=== PATIENT | male | born 1965 | race African-American/Black ===

== ENCOUNTER 2018-07-25 00:14 | Observation (INO) ==
[2018-07-25] MEDS ORDERED: SODIUM CHLORIDE 0.9% 1,000 ML IV STA (00:44)
[2018-07-25 01:15] LABS: Basophils % 0.3 % (0.0-0.8); Eosinophils # 0.1 10*3/uL (0.0-0.87); Eosinophils % 1.4 % (0.00-10.9); Hematocrit 43.9 VOL% (42.0-52.0); Hemoglobin 14.4 GM/DL (14.0-18.0); Immature Granulocytes % 0.4 %; Immature Granulocytes Absolute 0.03 #; Lymphocytes # 1.5 10*3/uL (1.4-4.0); Lymphocytes % 21.5 % (21.2-54.2); Mean Corpuscular HGB Conc 32.8 GM/DL (32-36); Mean Corpuscular Hemoglobin 26 PG (27-34); Mean Corpuscular Volume 79.4 FL (87-102); Mean Platelet Volume 10.3 FL (9.6-12.0); Monocytes # 0.6 10*3/uL (0.11-0.8); Monocytes % 8.8 % (1.7-12.7); Neutrophils # 4.8 10*3/uL (1.4-7.4); Neutrophils % 67.6 % (38.7-73.9); Platelet Count 297 T/CUMM (130-400); Red Blood Count 5.53 MC/CUMM (3.8-5.5); Red Cell Distribution Width 13.6 % (9.3-17.3); White Blood Count 7.1 T/CUMM (4-12)
[2018-07-25 01:21] LABS: Alanine Aminotransferase 21 U/L (16-61); Albumin 3.4 G/DL (3.4-5.0); Alkaline Phosphatase 52 U/L (45-117); Aspartate Amino Transferase 14 U/L (0-37); Bilirubin,Total < 0.39 MG/DL (0.2-1.0); Blood Urea Nitrogen 16 MG/DL (7-18); Calcium 9.1 MG/DL (8.5-10.1); Glucose 98 MG/DL (74-106); Osmolality,Calculated 277.5 MOS/KG (273-304); Potassium 4.3 MMOL/L (3.5-5.1); Sodium 139 MMOL/L (136-145); Total Protein 9.3 G/DL (6.4-8.3)
[2018-07-25 02:50] LABS: Apearance,Urine CLEAR (Clear); Bilirubin,Urine Negative (Negative); Blood, Urine Moderate mg/dL (Negative); Glucose,Urine (UA) Negative (Negative); Ketones,Urine Negative (Negative); Nitrite,Urine Negative (Negative); Protein,Urine Negative; RBC,Urine 1 /HPF (0-4); Squamous Epithelial Cell,Urine Occasional /HPF (0-10); Urine Color Straw (Yellow); Urine Specific Gravity 1.044 (1.001-1.035); Urine Urobilinogen < 2.0 EU/DL (0.2-1.0); WBC,Urine <1 /HPF (0-6)
[2018-07-25] MEDS ORDERED: NICOTINE 21 MG/24 HR PATCH TRANSDERM PRN (04:33)
[2018-07-25] MEDS ORDERED: diphenhydrAMINE CAP 25 MG CAPSULE PO PRN (04:33)
[2018-07-25] MEDS ORDERED: ACETAMINOPHEN 325 MG TABLET PO PRN (04:33)
[2018-07-25] MEDS ORDERED: MORPHINE 4 MG/1 ML VIAL IV PRN (04:33)
[2018-07-25] MEDS ORDERED: ONDANSETRON 4 MG/2 ML VIAL IV PRN (04:33)
[2018-07-25] MEDS ORDERED: hydrALAZINE 25 MG TABLET PO PRN (05:30)
[2018-07-25] MEDS: PANTOPRAZOLE 40 MG TABLET PO SCH (09:52)
[2018-07-25] MEDS ORDERED: LORazepam 2 MG/1 ML VIAL IV ONE ×2 (09:52→11:57)
[2018-07-25] MEDS ORDERED: diphenhydrAMINE 50 MG/1 ML VIAL IV ONE ×2 (09:53→11:56)
[2018-07-25] MEDS ORDERED: MORPHINE 4 MG/1 ML VIAL IV ONE (14:18)
[2018-07-25 16:49] LABS: Carcinoembryonic Antigen 1.1 NG/ML (0.0-5.0)
[2018-07-25 16:52] LABS: Total Protein 8.8 G/DL (6.4-8.3)
[2018-07-25] MEDS: LACTULOSE 20 GM/30 ML UDCUP PO SCH ×2 (17:58→21:12)
[2018-07-25] MEDS: hydrALAZINE 25 MG TABLET PO SCH ×2 (17:58→21:12)
[2018-07-25] MEDS ORDERED: SENNA 8.6 MG TABLET PO SCH (21:00)
[2018-07-25] MEDS: DOCUSATE SODIUM 100 MG CAPSULE PO SCH (21:11)
[2018-07-25] MEDS: POLYETHYLENE GLYCOL POWDER 17 GM PACK PO SCH (21:12)
[2018-07-26] MEDS: LACTULOSE 20 GM/30 ML UDCUP PO SCH ×3 (02:43→11:47)
[2018-07-26 05:52] LABS: Immunoglobulin A (Chem) 190 MG/DL (70-400); Immunoglobulin G (Chem) 2580 MG/DL (700-1600); Immunoglobulin M (Chem) 21 MG/DL (40-230); Total Protein (Chem) 8.8 G/DL (6.4-8.3)
[2018-07-26 09:21] LABS: Immuno Free Light Chain Kappa 2.16 MG/DL (0.33-1.94); Immuno Free Light Chain Lambda 22.28 MG/DL (0.57-2.63)
[2018-07-26 09:53] LABS: Albumin (SPE) 4.3 G/DL (3.2-5.3); Albumin (SPE) Rel % 48.9 %; Alpha 1 (SPE) 0.2 G/DL (0.1-0.4); Alpha 1 (SPE) Rel % 2.2 %; Alpha 2 (SPE) 0.8 G/DL (0.4-1.0); Alpha 2 (SPE) Rel % 9.4 %; Beta (SPE) 0.9 G/DL (0.5-1.1); Gamma (SPE) 2.6 G/DL (0.7-1.7); Gamma (SPE) Rel % 29.5 %
[2018-07-26] MEDS: POLYETHYLENE GLYCOL POWDER 17 GM PACK PO SCH (11:46)
[2018-07-26] MEDS: DOCUSATE SODIUM 100 MG CAPSULE PO SCH (11:46)
[2018-07-26] MEDS: hydrALAZINE 25 MG TABLET PO SCH (11:46)
[2018-07-26] MEDS: PANTOPRAZOLE 40 MG TABLET PO SCH (11:47)
[2018-07-26 12:05] VITALS: BP 145/90
== END 2018-07-26 15:17 | disposition home or self-care (01) ==
LOC: N.ED 00:14 → N.EDINP 00:14 → SUPCPDRO 04:33 → N.4E 04:52
PROVIDERS: ADMIT Hospitalist; ATTEND Hospitalist

== ENCOUNTER 2018-09-01 11:13 | Inpatient (IN) ==
[2018-09-01] MEDS ORDERED: SODIUM CHLORIDE 0.9% 500 ML IV STA (11:35)
[2018-09-01] MEDS ORDERED: ONDANSETRON 4 MG/2 ML VIAL IV STA (11:35)
[2018-09-01 11:51] LABS: Basophils % 0.3 % (0.0-0.8); Eosinophils % 0.4 % (0.00-10.9); Hematocrit 41.6 VOL% (42.0-52.0); Hemoglobin 13.3 GM/DL (14.0-18.0); Immature Granulocytes % 0.3 %; Immature Granulocytes Absolute 0.02 #; Lymphocytes # 0.8 10*3/uL (1.4-4.0); Lymphocytes % 10.5 % (21.2-54.2); Mean Corpuscular Hemoglobin 26 PG (27-34); Mean Corpuscular Volume 79.7 FL (87-102); Mean Platelet Volume 9.6 FL (9.6-12.0); Monocytes # 0.5 10*3/uL (0.11-0.8); Monocytes % 6.9 % (1.7-12.7); Neutrophils # 5.8 10*3/uL (1.4-7.4); Neutrophils % 81.6 % (38.7-73.9); Platelet Count 299 T/CUMM (130-400); Red Blood Count 5.22 MC/CUMM (3.8-5.5); Red Cell Distribution Width 13.5 % (9.3-17.3); White Blood Count 7.1 T/CUMM (4-12)
[2018-09-01 12:08] LABS: Albumin 3.3 G/DL (3.4-5.0); Bilirubin,Total 0.4 MG/DL (0.2-1.0); Osmolality,Calculated 282.3 MOS/KG (273-304); Potassium 4.1 MMOL/L (3.5-5.1); Total Protein 9.9 G/DL (6.4-8.3)
[2018-09-01] MEDS ORDERED: PROMETHAZINE 25 MG/1 ML VIAL ONE (12:50)
[2018-09-01] MEDS ORDERED: PROMETHAZINE 25 MG/1 ML VIAL IM STA (12:52)
[2018-09-01] MEDS ORDERED: PROMETHAZINE 25 MG/1 ML VIAL IM PRN (13:19)
[2018-09-01] MEDS ORDERED: ONDANSETRON 4 MG/2 ML VIAL IV PRN ×2 (13:19→18:10)
[2018-09-01] MEDS ORDERED: ACETAMINOPHEN 325 MG TABLET PO PRN (13:19)
[2018-09-01] MEDS ORDERED: MORPHINE 4 MG/1 ML VIAL ONE (14:14)
[2018-09-01] MEDS: MORPHINE 4 MG/1 ML VIAL IV PRN ×2 (14:50→23:30)
[2018-09-01] MEDS ORDERED: hydrALAZINE 20 MG/1 ML VIAL IV PRN (15:01)
[2018-09-01] MEDS: PIPERACILLIN/TAZOBACTAM 3,375 MG in SODIUM CHLORIDE 0.9% 100 ML IV SCH ×2 (15:27→23:32)
[2018-09-01] MEDS: DEXTROSE 5% LACTATED RINGERS 1,000 ML IV SCH (15:40)
[2018-09-01] MEDS ORDERED: hydrALAZINE 20 MG/1 ML VIAL IV ONE (15:53)
[2018-09-01] MEDS ORDERED: SUGAMMADEX 200 MG/2 ML VIAL IV ONE (17:51)
[2018-09-01] MEDS ORDERED: HYDROmorphone 2 MG/1 ML VIAL IV PRN (18:10)
[2018-09-01] MEDS ORDERED: ONDANSETRON 4 MG/2 ML VIAL ONE (18:26)
[2018-09-01] MEDS ORDERED: MIDAZOLAM 2 MG/2 ML VIAL ONE (18:26)
[2018-09-01] MEDS ORDERED: ACETAMINOPHEN 1,000 MG/100 ML VIAL IV ONE (18:26)
[2018-09-01] MEDS ORDERED: PROPOFOL 200 MG/20 ML VIAL IV ONE (18:26)
[2018-09-01] MEDS ORDERED: KETOROLAC 30 MG/1 ML VIAL ONE (18:26)
[2018-09-01] MEDS ORDERED: DESFLURANE 1 UNIT/15 MINUTE INH ONE (18:26)
[2018-09-01] MEDS ORDERED: fentaNYL 100 MCG/2 ML VIAL ONE (18:26)
[2018-09-01] MEDS ORDERED: PHENYLEPHRINE 1 MG/10 ML SYRINGE IV ONE (18:27)
[2018-09-01] MEDS ORDERED: SUCCINYLCHOLINE 200 MG/10 ML VIAL ONE (18:27)
[2018-09-01] MEDS ORDERED: LACTATED RINGERS 1,000 ML IV ONE (18:27)
[2018-09-01] MEDS ORDERED: ROCURONIUM 100 MG/10 ML VIAL IV ONE (18:27)
[2018-09-02 04:56] LABS: Hematocrit 37.1 VOL% (42.0-52.0); Immature Granulocytes % 0.3 %; Immature Granulocytes Absolute 0.03 #; Lymphocytes # 0.5 10*3/uL (1.4-4.0); Lymphocytes % 5.2 % (21.2-54.2); Mean Corpuscular HGB Conc 32.3 GM/DL (32-36); Mean Corpuscular Hemoglobin 26 PG (27-34); Mean Corpuscular Volume 79.1 FL (87-102); Mean Platelet Volume 10.1 FL (9.6-12.0); Monocytes # 0.3 10*3/uL (0.11-0.8); Neutrophils # 7.9 10*3/uL (1.4-7.4); Neutrophils % 91.5 % (38.7-73.9); Platelet Count 291 T/CUMM (130-400); Red Blood Count 4.69 MC/CUMM (3.8-5.5); Red Cell Distribution Width 13.9 % (9.3-17.3); White Blood Count 8.6 T/CUMM (4-12)
[2018-09-02 05:20] LABS: Hypochromasia 1+; Lymphocytes 3 % (20-55); Platelet Estimate Adequate; Segmented Neutrophils 96 % (50-85); Total Cells Counted 100
[2018-09-02 05:36] LABS: Calcium 8.5 MG/DL (8.5-10.1); Osmolality,Calculated 286.1 MOS/KG (273-304); Potassium 4.1 MMOL/L (3.5-5.1)
[2018-09-02] MEDS: PIPERACILLIN/TAZOBACTAM 3,375 MG in SODIUM CHLORIDE 0.9% 100 ML IV SCH (06:23)
[2018-09-02] MEDS: DEXTROSE 5% LACTATED RINGERS 1,000 ML IV SCH ×4 (06:39→23:17)
[2018-09-02] MEDS: PANTOPRAZOLE 40 MG TABLET PO SCH (08:21)
[2018-09-02] MEDS: MORPHINE 4 MG/1 ML VIAL IV PRN ×2 (10:30→20:24)
[2018-09-02] MEDS ORDERED: oxyCODONE IR 5 MG TABLET PO PRN (10:50)
[2018-09-02] MEDS: amLODIPine 10 MG TABLET PO SCH (11:20)
[2018-09-02] MEDS: GABAPENTIN 300 MG CAPSULE PO SCH ×2 (14:49→20:25)
[2018-09-02] MEDS: MORPHINE ER 15 MG TABLET PO SCH (17:06)
[2018-09-03 05:02] LABS: Calcium 8.1 MG/DL (8.5-10.1); Osmolality,Calculated 285.1 MOS/KG (273-304); Potassium 3.9 MMOL/L (3.5-5.1)
[2018-09-03 05:04] LABS: Total Protein 7.8 G/DL (6.4-8.3)
[2018-09-03 07:55] LABS: Albumin (SPE) 3.3 G/DL (3.2-5.3); Albumin (SPE) Rel % 42.3 %; Alpha 1 (SPE) 0.2 G/DL (0.1-0.4); Alpha 2 (SPE) 0.8 G/DL (0.4-1.0); Alpha 2 (SPE) Rel % 10.5 %; Beta (SPE) 0.8 G/DL (0.5-1.1); Beta (SPE) Rel % 10.5 %; Gamma (SPE) 2.6 G/DL (0.7-1.7); Total Protein (Chem) 7.8 G/DL (6.4-8.3)
[2018-09-03 07:56] LABS: Gamma (SPE) Rel % 33.7 %
[2018-09-03] MEDS: MORPHINE ER 15 MG TABLET PO SCH (08:35)
[2018-09-03] MEDS: amLODIPine 10 MG TABLET PO SCH (08:36)
[2018-09-03] MEDS: PANTOPRAZOLE 40 MG TABLET PO SCH (08:36)
[2018-09-03] MEDS: GABAPENTIN 300 MG CAPSULE PO SCH (08:36)
[2018-09-03] MEDS: DEXTROSE 5% LACTATED RINGERS 1,000 ML IV SCH ×2 (08:38→14:52)
[2018-09-03 11:33] VITALS: BP 167/92
[2018-09-04 10:06] LABS: Immuno Free Light Chain Kappa 1.91 MG/DL (0.33-1.94); Immuno Free Light Chain Lambda 23.18 MG/DL (0.57-2.63); Immuno Free Light Chain Ratio 0.08 MG/DL (0.26-1.65)
== END 2018-09-03 13:55 | disposition home health service (06) | DRG 330 ==
LOC: N.ED 11:13 → N.EDINP 13:19 → N.3E 14:43
PROVIDERS: ADMIT Surgery; ATTEND Surgery

== ENCOUNTER 2018-10-05 12:37 | Observation (INO) ==
[2018-10-05 14:00] LABS: Basophils % 0.2 % (0.0-0.8); Eosinophils # 0.1 10*3/uL (0.0-0.87); Eosinophils % 1.8 % (0.00-10.9); Hematocrit 33.4 VOL% (42.0-52.0); Hemoglobin 10.7 GM/DL (14.0-18.0); Immature Granulocytes % 0.2 %; Immature Granulocytes Absolute 0.01 #; Lymphocytes # 0.6 10*3/uL (1.4-4.0); Lymphocytes % 10.4 % (21.2-54.2); Mean Corpuscular Volume 79.5 FL (87-102); Mean Platelet Volume 9.5 FL (9.6-12.0); Monocytes % 12.4 % (1.7-12.7); Platelet Count 203 T/CUMM (130-400); Red Cell Distribution Width 13.8 % (9.3-17.3)
[2018-10-05 14:14] LABS: Albumin 2.7 G/DL (3.4-5.0); Bilirubin,Total 0.7 MG/DL (0.2-1.0); Calcium 8.8 MG/DL (8.5-10.1); Osmolality,Calculated 282.5 MOS/KG (273-304); Total Protein 9.1 G/DL (6.4-8.3)
[2018-10-05] MEDS ORDERED: FUROSEMIDE 40 MG/4 ML VIAL IV STA (15:03)
[2018-10-05] MEDS ORDERED: ONDANSETRON 4 MG/2 ML VIAL IV STA (16:59)
[2018-10-05] MEDS ORDERED: MORPHINE 4 MG/1 ML VIAL IV STA (17:00)
[2018-10-05] MEDS ORDERED: ONDANSETRON 4 MG/2 ML VIAL IV PRN (18:10)
[2018-10-05] MEDS ORDERED: oxyCODONE IR 5 MG TABLET PO PRN (18:15)
[2018-10-05 18:18] LABS: Apearance,Urine CLEAR (Clear); Bacteria,Urine Occasional /HPF (Few); Bilirubin,Urine Negative (Negative); Blood, Urine Small mg/dL (Negative); Glucose,Urine (UA) Negative (Negative); Hyaline Casts,Urine 1 /LPF (0-3); Ketones,Urine Negative (Negative); Nitrite,Urine Negative (Negative); Protein,Urine Negative; RBC,Urine 4 /HPF (0-4); Urine Color Yellow (Yellow); Urine Specific Gravity 1.005 (1.001-1.035); Urine Urobilinogen < 2.0 EU/DL (0.2-1.0); WBC,Urine 3 /HPF (0-6)
[2018-10-05] MEDS: MORPHINE ER 15 MG TABLET PO SCH (21:01)
[2018-10-05] MEDS: hydrALAZINE 25 MG TABLET PO SCH (21:01)
[2018-10-05] MEDS: TAMSULOSIN 0.4 MG CAPSULE PO SCH (21:01)
[2018-10-05] MEDS: GABAPENTIN 300 MG CAPSULE PO SCH (21:02)
[2018-10-05] MEDS: amLODIPine 10 MG TABLET PO SCH (21:04)
[2018-10-06 07:46] LABS: Albumin 2.4 G/DL (3.4-5.0); Bilirubin,Total 0.8 MG/DL (0.2-1.0); Calcium 8.3 MG/DL (8.5-10.1); Osmolality,Calculated 287.3 MOS/KG (273-304); Total Protein 8.3 G/DL (6.4-8.3)
[2018-10-06] MEDS: hydrALAZINE 25 MG TABLET PO SCH ×2 (09:52→20:35)
[2018-10-06] MEDS: PANTOPRAZOLE 40 MG TABLET PO SCH (09:52)
[2018-10-06] MEDS: GABAPENTIN 300 MG CAPSULE PO SCH ×3 (09:52→20:35)
[2018-10-06] MEDS: amLODIPine 10 MG TABLET PO SCH (09:53)
[2018-10-06] MEDS: MORPHINE ER 15 MG TABLET PO SCH ×2 (09:53→17:11)
[2018-10-06] MEDS ORDERED: COLCHICINE 0.6 MG CAPSULE PO SCH ×2 (11:15→12:15)
[2018-10-06] MEDS: predniSONE 20 MG TABLET PO SCH (11:33)
[2018-10-06] MEDS: SODIUM CHLORIDE 0.9% 1,000 ML IV SCH ×2 (14:18→15:23)
[2018-10-06] MEDS: TAMSULOSIN 0.4 MG CAPSULE PO SCH (20:35)
[2018-10-07 05:12] LABS: Basophils % 0.2 % (0.0-0.8); Eosinophils % 0.2 % (0.00-10.9); Hematocrit 30.9 VOL% (42.0-52.0); Hemoglobin 10.2 GM/DL (14.0-18.0); Immature Granulocytes % 0.3 %; Immature Granulocytes Absolute 0.02 #; Lymphocytes # 0.7 10*3/uL (1.4-4.0); Lymphocytes % 10.8 % (21.2-54.2); Mean Corpuscular Volume 77.1 FL (87-102); Mean Platelet Volume 9.9 FL (9.6-12.0); Monocytes % 12.1 % (1.7-12.7); Neutrophils % 76.4 % (38.7-73.9); Platelet Count 225 T/CUMM (130-400); Red Blood Count 4.01 MC/CUMM (3.8-5.5); Red Cell Distribution Width 13.2 % (9.3-17.3); White Blood Count 6.6 T/CUMM (4-12)
[2018-10-07 05:22] LABS: Calcium 8.2 MG/DL (8.5-10.1); Osmolality,Calculated 288.1 MOS/KG (273-304)
[2018-10-07] MEDS: GABAPENTIN 300 MG CAPSULE PO SCH ×2 (08:59→16:11)
[2018-10-07] MEDS: PANTOPRAZOLE 40 MG TABLET PO SCH (09:00)
[2018-10-07] MEDS: predniSONE 20 MG TABLET PO SCH (09:00)
[2018-10-07] MEDS: amLODIPine 10 MG TABLET PO SCH (09:00)
[2018-10-07] MEDS: MORPHINE ER 15 MG TABLET PO SCH ×2 (09:00→16:11)
[2018-10-07] MEDS: hydrALAZINE 25 MG TABLET PO SCH (09:00)
[2018-10-07] MEDS: SODIUM CHLORIDE 0.9% 1,000 ML IV SCH ×2 (09:04→11:55)
[2018-10-07 13:12] VITALS: BP 151/82
== END 2018-10-07 16:17 | disposition home or self-care (01) ==
LOC: N.ED 12:37 → INTOOBSV 18:10 → SUATTDRO 18:10 → N.EDINP 18:10 → N.4E 19:01
PROVIDERS: ADMIT Internal Medicine; ATTEND Internal Medicine Nephrology

== ENCOUNTER 2018-11-02 10:38 | Inpatient (IN) ==
[2018-11-02] MEDS ORDERED: SODIUM CHLORIDE 0.9% 1,000 ML IV STA (11:05)
[2018-11-02 11:41] LABS: Apearance,Urine Slightly Hazy (Clear); Bacteria,Urine Occasional /HPF (Few); Bilirubin,Urine Negative (Negative); Blood, Urine Small mg/dL (Negative); Glucose,Urine (UA) Negative (Negative); Ketones,Urine Negative (Negative); Mucus,Urine Occasional /LPF (Occasional); Nitrite,Urine Negative (Negative); Protein,Urine 100 MG/DL; RBC,Urine 18 /HPF (0-4); Squamous Epithelial Cell,Urine Occasional /HPF (0-10); Urine Color Yellow (Yellow); Urine Specific Gravity 1.012 (1.001-1.035); Urine Urobilinogen < 2.0 EU/DL (0.2-1.0); WBC,Urine 81 /HPF (0-6)
[2018-11-02 11:53] LABS: Basophils % 0.1 % (0.0-0.8); Hematocrit 27.8 VOL% (42.0-52.0); Hemoglobin 9.2 GM/DL (14.0-18.0); Immature Granulocytes % 0.4 %; Immature Granulocytes Absolute 0.04 #; Lymphocytes # 0.2 10*3/uL (1.4-4.0); Lymphocytes % 2.6 % (21.2-54.2); Mean Corpuscular HGB Conc 33.1 GM/DL (32-36); Mean Corpuscular Volume 76.8 FL (87-102); Monocytes % 13.8 % (1.7-12.7); Neutrophils % 83.1 % (38.7-73.9); Platelet Count 168 T/CUMM (130-400); Red Blood Count 3.62 MC/CUMM (3.8-5.5); Red Cell Distribution Width 13.9 % (9.3-17.3); White Blood Count 9.2 T/CUMM (4-12)
[2018-11-02 12:13] LABS: Hypochromasia 1+; Lymphocytes 2 % (20-55); Platelet Estimate Adequate; Segmented Neutrophils 90 % (50-85); Total Cells Counted 100
[2018-11-02 12:32] LABS: Albumin 2.4 G/DL (3.4-5.0); Bilirubin,Total 0.4 MG/DL (0.2-1.0); Calcium 8.2 MG/DL (8.5-10.1); Osmolality,Calculated 284.3 MOS/KG (273-304); Total Protein 8.2 G/DL (6.4-8.3)
[2018-11-02] MEDS ORDERED: MEROPENEM 1,000 MG in SODIUM CHLORIDE 0.9% 100 ML IV STA (12:56)
[2018-11-02] MEDS ORDERED: LEVOFLOXACIN INJ 500 MG in PREMIX 1 EACH IV STA (13:03)
[2018-11-02] MEDS ORDERED: DOCUSATE SODIUM 100 MG CAPSULE PO PRN (15:47)
[2018-11-02 16:19] LABS: Risk Ratio 3.21; Thyroid Stimulating Hormone 0.342 uIU/ml (0.358-3.74); VLDL CHOLESTEROL 17.4 MG/DL
[2018-11-02] MEDS: PIPERACILLIN/TAZOBACTAM 3,375 MG in SODIUM CHLORIDE 0.9% 100 ML IV SCH (16:52)
[2018-11-02] MEDS: SODIUM CHLORIDE 0.9% 1,000 ML IV SCH (16:52)
[2018-11-02] MEDS: ACETAMINOPHEN 325 MG TABLET PO PRN (19:53)
[2018-11-02] MEDS: MORPHINE 4 MG/1 ML VIAL IV PRN (21:28)
[2018-11-03] MEDS: PIPERACILLIN/TAZOBACTAM 3,375 MG in SODIUM CHLORIDE 0.9% 100 ML IV SCH ×2 (00:59→09:08)
[2018-11-03] MEDS: SODIUM CHLORIDE 0.9% 1,000 ML IV SCH ×2 (01:03→13:46)
[2018-11-03 05:25] LABS: Basophils % 0.2 % (0.0-0.8); Eosinophils % 0.3 % (0.00-10.9); Hematocrit 33.7 VOL% (42.0-52.0); Hemoglobin 10.9 GM/DL (14.0-18.0); Immature Granulocytes % 0.3 %; Immature Granulocytes Absolute 0.02 #; Lymphocytes # 0.2 10*3/uL (1.4-4.0); Lymphocytes % 2.3 % (21.2-54.2); Mean Corpuscular HGB Conc 32.3 GM/DL (32-36); Mean Corpuscular Volume 77.3 FL (87-102); Mean Platelet Volume 9.6 FL (9.6-12.0); Monocytes % 15.2 % (1.7-12.7); Neutrophils % 81.7 % (38.7-73.9); Platelet Count 149 T/CUMM (130-400); Red Blood Count 4.36 MC/CUMM (3.8-5.5); Red Cell Distribution Width 13.9 % (9.3-17.3); White Blood Count 6.6 T/CUMM (4-12)
[2018-11-03 05:41] LABS: Albumin 2.1 G/DL (3.4-5.0); Bilirubin,Total 0.6 MG/DL (0.2-1.0); Calcium 8.2 MG/DL (8.5-10.1); Osmolality,Calculated 279.5 MOS/KG (273-304); Total Protein 7.7 G/DL (6.4-8.3)
[2018-11-03] MEDS: ONDANSETRON 4 MG/2 ML VIAL IV PRN ×2 (06:01→19:37)
[2018-11-03 06:17] LABS: Band Neutrophils 5 % (0-10); Lymphocytes 3 % (20-55); Metamyelocytes 2 %; Myelocytes 1 %; Platelet Estimate Normal; Segmented Neutrophils 75 % (50-85); Total Cells Counted 100
[2018-11-03] MEDS: ACETAMINOPHEN 325 MG TABLET PO PRN ×2 (06:29→18:38)
[2018-11-03] MEDS: PANTOPRAZOLE 40 MG TABLET PO SCH (09:08)
[2018-11-03] MEDS: PROMETHAZINE 25 MG TABLET PO PRN (11:13)
[2018-11-03] MEDS ORDERED: VANCOMYCIN INJ 1,500 MG in SODIUM CHLORIDE 0.9% 500 ML IV SCH (16:00)
[2018-11-03] MEDS: MORPHINE 4 MG/1 ML VIAL IV PRN ×2 (17:34→21:50)
[2018-11-04] MEDS: SODIUM CHLORIDE 0.9% 1,000 ML IV SCH ×2 (00:09→09:23)
[2018-11-04 02:31] LABS: Basophils % 0.2 % (0.0-0.8); Eosinophils # 0.1 10*3/uL (0.0-0.87); Eosinophils % 1.3 % (0.00-10.9); Hematocrit 29.6 VOL% (42.0-52.0); Hemoglobin 9.9 GM/DL (14.0-18.0); Immature Granulocytes % 0.6 %; Immature Granulocytes Absolute 0.03 #; Lymphocytes # 0.1 10*3/uL (1.4-4.0); Lymphocytes % 2.5 % (21.2-54.2); Mean Corpuscular HGB Conc 33.4 GM/DL (32-36); Mean Corpuscular Volume 75.7 FL (87-102); Mean Platelet Volume 9.9 FL (9.6-12.0); Monocytes % 18.1 % (1.7-12.7); Neutrophils % 77.3 % (38.7-73.9); Platelet Count 140 T/CUMM (130-400); Red Blood Count 3.91 MC/CUMM (3.8-5.5); Red Cell Distribution Width 13.7 % (9.3-17.3); White Blood Count 4.8 T/CUMM (4-12)
[2018-11-04 02:59] LABS: Albumin 1.8 G/DL (3.4-5.0); Bilirubin,Total 0.5 MG/DL (0.2-1.0); Calcium 7.9 MG/DL (8.5-10.1); Osmolality,Calculated 282.4 MOS/KG (273-304); Total Protein 7.1 G/DL (6.4-8.3)
[2018-11-04 03:25] LABS: Band Neutrophils 3 % (0-10); Lymphocytes 4 % (20-55); Segmented Neutrophils 77 % (50-85)
[2018-11-04 03:27] LABS: Hypochromasia Slight; Platelet Estimate Normal
[2018-11-04 03:28] LABS: Total Cells Counted 100
[2018-11-04] MEDS: ONDANSETRON 4 MG/2 ML VIAL IV PRN (04:00)
[2018-11-04] MEDS: HydrOXYzine PAMOATE 50 MG CAPSULE PO PRN ×3 (04:14→21:24)
[2018-11-04] MEDS: MORPHINE 4 MG/1 ML VIAL IV PRN ×3 (07:37→21:24)
[2018-11-04] MEDS: PANTOPRAZOLE 40 MG TABLET PO SCH (09:23)
[2018-11-04] MEDS: PROMETHAZINE 25 MG TABLET PO PRN (14:55)
[2018-11-04] MEDS: CIPROFLOXACIN INJ 400 MG in PREMIX 1 EACH IV SCH (16:43)
[2018-11-04] MEDS: COLCHICINE 0.6 MG CAPSULE PO PRN (20:22)
[2018-11-04] MEDS: ACETAMINOPHEN 325 MG TABLET PO PRN (20:26)
[2018-11-05] MEDS: MORPHINE 4 MG/1 ML VIAL IV PRN ×2 (02:28→06:22)
[2018-11-05] MEDS: CIPROFLOXACIN INJ 400 MG in PREMIX 1 EACH IV SCH (02:32)
[2018-11-05 04:36] LABS: Basophils % 0.2 % (0.0-0.8); Eosinophils # 0.1 10*3/uL (0.0-0.87); Eosinophils % 1.6 % (0.00-10.9); Hematocrit 29.7 VOL% (42.0-52.0); Hemoglobin 9.8 GM/DL (14.0-18.0); Immature Granulocytes % 0.9 %; Immature Granulocytes Absolute 0.04 #; Lymphocytes # 0.2 10*3/uL (1.4-4.0); Lymphocytes % 3.6 % (21.2-54.2); Mean Corpuscular Volume 76.2 FL (87-102); Mean Platelet Volume 9.9 FL (9.6-12.0); Neutrophils % 76.7 % (38.7-73.9); Platelet Count 154 T/CUMM (130-400); Red Cell Distribution Width 13.8 % (9.3-17.3); White Blood Count 4.5 T/CUMM (4-12)
[2018-11-05 04:54] LABS: Albumin 1.9 G/DL (3.4-5.0); Bilirubin,Total 0.5 MG/DL (0.2-1.0); Osmolality,Calculated 284.1 MOS/KG (273-304)
[2018-11-05 05:03] LABS: Band Neutrophils 12 % (0-10); Lymphocytes 4 % (20-55); Myelocytes 1 %; Segmented Neutrophils 77 % (50-85); Total Cells Counted 100
[2018-11-05 05:04] LABS: Hypochromasia 1+; Microcytosis 1+
[2018-11-05 08:30] VITALS: BP 126/70
[2018-11-05] MEDS: PANTOPRAZOLE 40 MG TABLET PO SCH (08:59)
[2018-11-05] MEDS: ACETAMINOPHEN 325 MG TABLET PO PRN (09:05)
[2018-11-05] MEDS: COLCHICINE 0.6 MG CAPSULE PO PRN (09:06)
== END 2018-11-05 11:10 | disposition home or self-care (01) | DRG 698 ==
LOC: EDUNIT# → N.ED 10:38 → N.EDINP 13:15 → N.5E 13:24 → N.4E 13:28
PROVIDERS: ADMIT Internal Medicine; ATTEND Internal Medicine